=== PATIENT | male | born 2000 | race American Indian/Alaskan Native ===

== ENCOUNTER 2018-12-14 01:46 | Emergency (ER) | payer MEDICAID ==
[2018-12-14 02:22] VITALS: BP 123/62
--- NOTE | 2018-12-14 05:32 | Emergency Department Report ---
Chief Complaint: Wound/Laceration Stated Complaint: RIGHT MIDDLE FINGER PAIN Time Seen by Provider: 12/14/18 05:32 - HPI History of Present Illness: 18-year-old -Citizen Of [place] male who smells of cannabis comes in stating he was seen yesterday for right middle finger nail bed infection. Patient reports that they placed him on Motrin and Bactrim but patient reports he was afraid to take Motrin as prescribed as she did want to overdose. She comes in to ask what else he can take for pain. - ROS Review of Systems: Right middle finger pain - Exam Vital Signs: Vital Signs 12/14/18 12/14/18 01:54 02:12 Temperature 98.1 F 98 F Pulse Rate 68 76 Respiratory 18 18 Rate Blood Pressure 123/62 123/62 O2 Sat by Pulse 98 98 Oximetry Physical Exam: Right middle finger swelling with mild redness MSE screening note: Focused history and physical exam performed. Due to findings the following was ordered: Discuss with patient to take medication as prescribed. If the pain would improve with correct dosing of his medication. Patient verbalizes understanding. ED Disposition for MSE Clinical Impression: Infected nailbed of finger Qualifiers: Laterality: right Qualified Code(s): L03.011 - Cellulitis of right finger Disposition: DC-01 TO HOME OR SELFCARE Is pt being admited?: No Does the pt Need Aspirin: No Condition: Stable Additional Instructions: Complete her antibiotics as prescribed take her pain medication as prescribed. Follow-up with the primary care provider for symptoms persist or gets worse. Referrals: NAJMA PALENCIA MD [Primary Care Provider] - 3-5 Days
== END 2018-12-14 05:32 | disposition home or self-care (01) ==
LOC: ED 01:46
DX: L03.011 Cellulitis of right finger (principal)
CPT/HCPCS: 99281

== ENCOUNTER 2019-06-18 04:50 | Emergency (ER) | payer MEDICAID ==
[2019-06-18 05:13] VITALS: BP 122/56
[2019-06-18] MEDS ORDERED: AZITHROMYCIN 250 MG TAB PO ONE (05:29)
[2019-06-18] MEDS ORDERED: LIDOCAINE-MPF (1%) 10 MG/1 ML VIAL 5 ML INFILTRATI ONE (05:29)
[2019-06-18] MEDS ORDERED: ONDANSETRON 4 MG ODT TAB PO ONE (05:29)
[2019-06-18] MEDS ORDERED: PHENAZOPYRIDINE 200 MG TAB PO ONE (05:29)
--- NOTE | 2019-06-18 05:34 | Emergency Department Report ---
ED Male HPI - General Chief complaint: Urogenital-Male Stated complaint: WHITE SPOTS IN MOUTH, PENILE DISCHARGE, DIARRHEA Source: patient Mode of arrival: Ambulatory Limitations: No Limitations - History of Present Illness Initial comments: Patient is a 18-year-old -[place] male with no past medical history who presents to the ED with continued of acute onset persistent painful intraoral lesions in the last 2 weeks after having oral intercourse, also complains of penile discharge, urinary frequency and urgency and dysuria for the last 3 days after having unprotected sexual intercourse. Patient denies testicular pain, fever, chills, nausea, vomiting, low back pain, hematuria, abdominal pain or diarrhea and traumatic injury. MD Complaint: penile discharge, dysuria, other (Painful oral lesions) -: Sudden, days(s) (3) Location: penis Radiation: none Severity: severe Severity scale (0 -10): 7 Quality: aching, burning, sharp Consistency: constant Improves with: none Worsens with: urination denies other symptoms, discharge, rash, dysuria. denies: swelling, mass, urinary retention, blood in urine, fever, nausea/vomiting, incontinence, other - Related Data Sexually active: Yes Home Medications Medication Instructions Recorded Confirmed Last Taken Bactrim DS TAB 1 tab PO BID 12/14/18 12/14/18 Unknown Motrin 600 MG tab 1 tab PO BID 12/14/18 12/14/18 Unknown Previous Rx's Medication Instructions Recorded Last Taken Type Furosemide [Lasix] 20 mg PO DAILY #30 tablet 10/11/18 12/13/18 09:00 Rx Lisinopril [Zestril TAB] 2.5 mg PO QDAY #30 tab 10/11/18 12/13/18 Rx Acyclovir [Zovirax Tab] 400 mg PO Q8H #30 tab 06/18/19 Unknown Rx Ondansetron [Zofran Odt] 4 mg PO Q6HR PRN #15 tab.rapdis 06/18/19 Unknown Rx Phenazopyridine [Pyridium] 100 mg PO Q8H #21 tab 06/18/19 Unknown Rx Sulfamethoxazole/Trimethoprim 1 each PO Q12H #20 tablet 06/18/19 Unknown Rx [Bactrim DS TAB] metroNIDAZOLE [Flagyl] 500 mg PO Q12HR #14 tab 06/18/19 Unknown Rx Allergies Allergy/AdvReac Type Severity Reaction Status Date / Time No Known Allergies Allergy Unverified 10/09/18 22:53 ED Review of Systems ROS: Stated complaint: WHITE SPOTS IN MOUTH, PENILE DISCHARGE, DIARRHEA Other details as noted in HPI Constitutional: denies: chills, fever Eyes: denies: eye pain, eye discharge, vision change ENT: other (painful ulcerated oral lesions). denies: ear pain, throat pain Respiratory: denies: cough, shortness of breath, wheezing Cardiovascular: denies: chest pain, palpitations Endocrine: no symptoms reported Gastrointestinal: denies: abdominal pain, nausea, diarrhea Genitourinary: urgency, dysuria, frequency, discharge Musculoskeletal: denies: back pain, joint swelling, arthralgia Skin: denies: rash, lesions Neurological: denies: headache, weakness, paresthesias Psychiatric: denies: anxiety, depression Hematological/Lymphatic: denies: easy bleeding, easy bruising ED Past Medical Hx - Past Medical History Previous Medical History?: Yes Hx Hypertension: Yes Hx Congestive Heart Failure: No Hx Diabetes: No Hx Asthma: No Hx COPD: No Additional medical history: Congenital Heart Disease, Heart Murmur, - Surgical History Past Surgical History?: Yes Additional Surgical History: Repair of congenital heart disease - Social History Smoking Status: Never Smoker Substance Use Type: None - Medications Home Medications: Home Medications Medication Instructions Recorded Confirmed Last Taken Type Furosemide [Lasix] 20 mg PO DAILY #30 tablet 10/11/18 12/14/18 12/13/18 09:00 Rx Lisinopril [Zestril TAB] 2.5 mg PO QDAY #30 tab 10/11/18 12/14/18 12/13/18 Rx Bactrim DS TAB 1 tab PO BID 12/14/18 12/14/18 Unknown History Motrin 600 MG tab 1 tab PO BID 12/14/18 12/14/18 Unknown History Acyclovir [Zovirax Tab] 400 mg PO Q8H #30 tab 06/18/19 Unknown Rx Ondansetron [Zofran Odt] 4 mg PO Q6HR PRN #15 tab.rapdis 06/18/19 Unknown Rx Phenazopyridine [Pyridium] 100 mg PO Q8H #21 tab 06/18/19 Unknown Rx Sulfamethoxazole/Trimethoprim 1 each PO Q12H #20 tablet 06/18/19 Unknown Rx [Bactrim DS TAB] metroNIDAZOLE [Flagyl] 500 mg PO Q12HR #14 tab 06/18/19 Unknown Rx ED Physical Exam - General Limitations: No Limitations General appearance: alert, in no apparent distress - Head Head exam: Present: atraumatic, normocephalic, normal inspection - Eye Eye exam: Present: normal appearance, PERRL, EOMI Pupils: Present: normal accommodation - ENT ENT exam: Present: normal exam, normal orophraynx, mucous membranes moist, TM's normal bilaterally, normal external ear exam, other (erythematous ulcerated lesions with tenderness) - Neck Neck exam: Present: normal inspection, full ROM. Absent: tenderness, meningismus, lymphadenopathy, thyromegaly - Respiratory Respiratory exam: Present: normal lung sounds bilaterally. Absent: respiratory distress, wheezes, rales, rhonchi, chest wall tenderness, accessory muscle use, decreased breath sounds - Cardiovascular Cardiovascular Exam: Present: normal rhythm, bradycardia, normal heart sounds. Absent: systolic murmur, diastolic murmur, rubs, gallop - GI/Abdominal GI/Abdominal exam: Present: soft, normal bowel sounds. Absent: tenderness, guarding, rebound, hyperactive bowel sounds, hypoactive bowel sounds, organomegaly - Rectal Rectal exam: Present: deferred - exam: Present: urethral discharge, circumcision. Absent: testicular tenderness, scrotal swelling, vertical testicular lie External exam: Present: normal external exam. Absent: erythema, lesions - Extremities Exam Extremities exam: Present: normal inspection, full ROM, normal capillary refill - Back Exam Back exam: Present: normal inspection, full ROM. Absent: tenderness, CVA tenderness (R), CVA tenderness (L), muscle spasm, paraspinal tenderness, vertebral tenderness - Neurological Exam Neurological exam: Present: alert, oriented X3, CN II-XII intact, normal gait, reflexes normal - Psychiatric Psychiatric exam: Present: normal affect, normal mood - Skin Skin exam: Present: warm, dry, intact, normal color. Absent: rash ED Course Vital Signs 06/18/19 05:07 Temperature 98.1 F Pulse Rate 51 L Respiratory 20 Rate Blood Pressure 122/56 O2 Sat by Pulse 100 Oximetry - Reevaluation(s) Reevaluation #1: 06/18/19 05:35 This is a 18-year-old -[place] male with no past medical history who presented to the ED with painful ulcerated oral lesions with penile discharge and dysuria with urinary frequency and urgency. In the ED, patient is alert and oriented 3 and is not in distress. Urinalysis was ordered to include chlamydia and gonorrhea. Patient was treated empirically in the ED for gonorrhea and chlamydia and discharged home on acyclovir for suspected herpes simplex type I infection. Patient was advised to follow-up at the [facility] for further STD testing, and to inform his sexual partner or partners to go to the health Department for further STD testing and treatment. Patient was advised to return to the ED immediately if symptoms get worse. ED Medical Decision Making - Medical Decision Making This is a 18-year-old -[place] male with no past medical history who presented to the ED with painful ulcerated oral lesions with penile discharge and dysuria with urinary frequency and urgency. In the ED, patient is alert and oriented 3 and is not in distress. Urinalysis was ordered to include chlamydia and gonorrhea. Patient was treated empirically in the ED for gonorrhea and chlamydia and discharged home on acyclovir for suspected herpes simplex type I infection. Patient was advised to follow-up at the [facility] for further STD testing, and to inform his sexual partner or partners to go to the health Department for further STD testing and treatment. Patient was advised to return to the ED immediately if symptoms get worse. - Differential Diagnosis Acute UTI; Urethritis; Herpes simplex; STD Critical care attestation.: If time is entered above; I have spent that time in minutes in the direct care of this critically ill patient, excluding procedure time. ED Disposition Clinical Impression: STD (sexually transmitted disease), Urethritis, unspecified, Herpes gingivostomatitis, Acute urinary tract infection Disposition: DC-01 TO HOME OR SELFCARE Is pt being admited?: No Does the pt Need Aspirin: No Condition: Stable Instructions: Nonspecific Urethritis in Men (ED), Urinary Tract Infection in Children (ED), Dysuria (ED), Safe Sex (ED), Sexually Transmitted Diseases (ED), Oral Herpes Simplex Virus Infections (ED), Genital Herpes Simplex (ED) Additional Instructions: Take medications with food, drink plenty of fluids and follow-up with [facility] for further STD testing. Insomnia sexual partners also be tested and treated at the health Department as advised. Return to the ED immediately if symptoms get worse. Prescriptions: Sulfamethoxazole/Trimethoprim [Bactrim DS TAB] 1 each PO Q12H #20 tablet metroNIDAZOLE [Flagyl] 500 mg PO Q12HR #14 tab Phenazopyridine [Pyridium] 100 mg PO Q8H #21 tab Ondansetron [Zofran Odt] 4 mg PO Q6HR PRN #15 tab.rapdis PRN Reason: Nausea Acyclovir [Zovirax Tab] 400 mg PO Q8H #30 tab Referrals: [facility] [Outside] - 3-5 Days Forms: STI Treatment and Prevention Time of Disposition: 05:40 Print Language: KHMER
== END 2019-06-18 06:15 | disposition home or self-care (01) ==
LOC: ED 04:50
DX: N39.0 Urinary tract infection, site not specified (principal); B00.2 Herpesviral gingivostomatitis and pharyngotonsillitis; N34.2 Other urethritis; A64 Unspecified sexually transmitted disease; I10 Essential (primary) hypertension; Z79.899 Other long term (current) drug therapy
CPT/HCPCS: 96372; 99282; J0696; Q0162

== ENCOUNTER 2019-07-27 16:04 | Emergency (ER) | payer MEDICAID ==
--- NOTE | 2019-07-27 16:32 | Emergency Department Report ---
Blank Doc - Documentation Documentation: 18-year-old male that presents with right testicular pain. Denies any other s ymptoms. This initial assessment/diagnostic orders/clinical plan/treatment(s) is/are subject to change based on patient's health status, clinical progression and re- assessment by fellow clinical providers in the ED. Further treatment and workup at subsequent clinical providers discretion. Patient/guardians urged not to elope from the ED as their condition may be serious if not clinically assessed and managed. Initial orders include: 1- Patient sent to [facility] for further evaluation and treatment 2- UA 3- US testicular doppler stat. Called US tech.
--- NOTE | 2019-07-27 17:53 | Ultrasound Report ---
[facility] ULTRASOUND INDICATION / CLINICAL INFORMATION: Right testicular pain for one day.. COMPARISON: None available. FINDINGS: Both testicles are normal in size and echo pattern. There is a single microlith in the left mid testi chata which is of doubtful clinical significance. There is no evidence of a testicular mass. There is n ormal blood flow to both testicles on Doppler exam. There are minimal bilateral hydroceles. The epidi dymis is normal in appearance bilaterally. I see no evidence of a varicocele. IMPRESSION: No evidence of testicular mass or torsion. Signer Name: Torrey Pulido MD Signed: 07/27/2019 5:48 PM Workstation Name: [id number]
[2019-07-27] MEDS ORDERED: ONDANSETRON 4 MG ODT TAB PO ONE (20:03)
[2019-07-27] MEDS ORDERED: AZITHROMYCIN 250 MG TAB PO ONE (20:03)
[2019-07-27] MEDS ORDERED: LIDOCAINE-MPF (1%) 10 MG/1 ML VIAL 5 ML INFILTRATI ONE (20:03)
[2019-07-27 20:54] LABS: Bacteria,Urine 1+ /HPF (Negative); Bilirubin,Urine NEG (Negative); Blood,Urine NEG (Negative); Color,Urine Yellow (Yellow); Mucus,Urine 3+ /HPF
--- NOTE | 2019-07-27 21:26 | Emergency Department Report ---
ED Male HPI - General Chief complaint: Urogenital-Male Stated complaint: GROIN/PAIN Time Seen by Provider: 07/27/19 16:31 Source: patient Mode of arrival: Ambulatory Limitations: No Limitations - History of Present Illness Initial comments: Patient is a 18-year-old -[place] male with no past medical history who presents to the ED, with complaint of acute onset persistent nontraumatic right testicular pain for 6 hours. Patient denies traumatic injury, fall, heavy lifting, hematuria, penile discharge, urinary frequency and urgency, dysuria, back pain, flank pain, fever, chills, nausea and vomiting or pain. MD Complaint: testicle pain (his) -: Sudden, hour(s) (6) Location: right testicle Radiation: none Severity: severe Severity scale (0 -10): 7 Quality: aching, sharp Consistency: constant Improves with: none Worsens with: palpation, movement denies other symptoms. denies: discharge, swelling, mass, rash, urinary retention, blood in urine, dysuria, fever, nausea/vomiting, incontinence - Related Data Sexually active: Yes Home Medications Medication Instructions Recorded Confirmed Last Taken Bactrim DS TAB 1 tab PO BID 12/14/18 12/14/18 Unknown Motrin 600 MG tab 1 tab PO BID 12/14/18 12/14/18 Unknown Previous Rx's Medication Instructions Recorded Last Taken Type Furosemide [Lasix] 20 mg PO DAILY #30 tablet 10/11/18 12/13/18 09:00 Rx Lisinopril [Zestril TAB] 2.5 mg PO QDAY #30 tab 10/11/18 12/13/18 Rx Acyclovir [Zovirax Tab] 400 mg PO Q8H #30 tab 06/18/19 Unknown Rx Ondansetron [Zofran Odt] 4 mg PO Q6HR PRN #15 tab.rapdis 06/18/19 Unknown Rx Phenazopyridine [Pyridium] 100 mg PO Q8H #21 tab 06/18/19 Unknown Rx Sulfamethoxazole/Trimethoprim 1 each PO Q12H #20 tablet 06/18/19 Unknown Rx [Bactrim DS TAB] metroNIDAZOLE [Flagyl] 500 mg PO Q12HR #14 tab 06/18/19 Unknown Rx Acetaminophen/Codeine [Tylenol 1 tab PO Q6H PRN #10 tab 07/27/19 Unknown Rx /Codeine # 3 tab] Ciprofloxacin HCl [Ciprofloxacin 500 mg PO Q12HR #20 tab 07/27/19 Unknown Rx TAB] Naproxen 500 mg PO Q12H PRN #24 tablet 07/27/19 Unknown Rx Allergies Allergy/AdvReac Type Severity Reaction Status Date / Time No Known Allergies Allergy Unverified 10/09/18 22:53 ED Review of Systems ROS: Stated complaint: GROIN/PAIN Other details as noted in HPI Comment: All other systems reviewed and negative Constitutional: denies: chills, fever Eyes: denies: eye pain, eye discharge, vision change ENT: denies: ear pain, throat pain Respiratory: denies: cough, orthopnea, shortness of breath, SOB with exertion, stridor, wheezing Cardiovascular: denies: chest pain, palpitations Endocrine: no symptoms reported Gastrointestinal: denies: abdominal pain, nausea, diarrhea Genitourinary: testicular pain (right testicular pain). denies: urgency, dysuria, frequency, hematuria, discharge Musculoskeletal: denies: back pain, joint swelling, arthralgia, myalgia Skin: denies: rash, lesions, change in color Neurological: denies: headache, weakness, paresthesias Psychiatric: denies: anxiety, depression Hematological/Lymphatic: denies: easy bleeding, easy bruising ED Past Medical Hx - Past Medical History Previous Medical History?: Yes Hx Hypertension: Yes Hx Congestive Heart Failure: No Hx Diabetes: No Hx Asthma: No Hx COPD: No Additional medical history: Congenital Heart Disease, Heart Murmur, - Surgical History Past Surgical History?: Yes Additional Surgical History: Repair of congenital heart disease - Social History Smoking Status: Current Every Day Smoker Substance Use Type: Marijuana - Medications Home Medications: Home Medications Medication Instructions Recorded Confirmed Last Taken Type Furosemide [Lasix] 20 mg PO DAILY #30 tablet 10/11/18 12/14/18 12/13/18 09:00 Rx Lisinopril [Zestril TAB] 2.5 mg PO QDAY #30 tab 10/11/18 12/14/18 12/13/18 Rx Bactrim DS TAB 1 tab PO BID 12/14/18 12/14/18 Unknown History Motrin 600 MG tab 1 tab PO BID 12/14/18 12/14/18 Unknown History Acyclovir [Zovirax Tab] 400 mg PO Q8H #30 tab 10/03/19 Unknown Rx Ondansetron [Zofran Odt] 4 mg PO Q6HR PRN #15 tab.rapdis 06/18/19 Unknown Rx Phenazopyridine [Pyridium] 100 mg PO Q8H #21 tab 06/18/19 Unknown Rx Sulfamethoxazole/Trimethoprim 1 each PO Q12H #20 tablet 06/18/19 Unknown Rx [Bactrim DS TAB] metroNIDAZOLE [Flagyl] 500 mg PO Q12HR #14 tab 06/18/19 Unknown Rx Acetaminophen/Codeine [Tylenol 1 tab PO Q6H PRN #10 tab 07/27/19 Unknown Rx /Codeine # 3 tab] Ciprofloxacin HCl [Ciprofloxacin 500 mg PO Q12HR #20 tab 07/27/19 Unknown Rx TAB] Naproxen 500 mg PO Q12H PRN #24 tablet 07/27/19 Unknown Rx ED Physical Exam - General Limitations: No Limitations General appearance: alert, in no apparent distress - Head Head exam: Present: atraumatic, normocephalic, normal inspection - Eye Eye exam: Present: normal appearance, PERRL, EOMI Pupils: Present: normal accommodation - ENT ENT exam: Present: normal exam, normal orophraynx, mucous membranes moist, TM's normal bilaterally, normal external ear exam - Neck Neck exam: Present: normal inspection, full ROM - Respiratory Respiratory exam: Present: normal lung sounds bilaterally. Absent: respiratory distress, wheezes, rales, rhonchi, stridor, chest wall tenderness, accessory muscle use, decreased breath sounds - Cardiovascular Cardiovascular Exam: Present: regular rate, normal rhythm, normal heart sounds. Absent: systolic murmur, diastolic murmur, rubs, gallop - GI/Abdominal GI/Abdominal exam: Present: soft, normal bowel sounds. Absent: tenderness, guarding, rebound, hyperactive bowel sounds, hypoactive bowel sounds - exam: Present: testicular tenderness (right ), circumcision. Absent: urethral discharge, scrotal swelling, vertical testicular lie External exam: Present: normal external exam. Absent: erythema, swelling, lesions, lacerations, ecchymosis, bleeding - Extremities Exam Extremities exam: Present: normal inspection, full ROM, normal capillary refill - Back Exam Back exam: Present: normal inspection, full ROM. Absent: tenderness, muscle spasm - Neurological Exam Neurological exam: Present: alert, oriented X3, CN II-XII intact, normal gait, reflexes normal - Psychiatric Psychiatric exam: Present: normal affect, normal mood - Skin Skin exam: Present: warm, dry, intact, normal color. Absent: rash ED Course Vital Signs 07/27/19 16:31 Temperature 97.8 F Pulse Rate 65 Respiratory 20 Rate Blood Pressure 116/42 O2 Sat by Pulse 100 Oximetry ED Medical Decision Making - Radiology Data Radiology results: report reviewed, image reviewed Findings [address] [address] Ultrasound Report Signed Patient: JOY MARTINEZ MR#: [id number] : 2000 Acct:[id number] Age/Sex: 18 / M ADM Date: 07/27/19 Loc: ED Attending Dr: Ordering Physician: CHAITANYA CANADA NP Date of Service: 07/27/19 Procedure(s): US testicular doppler comp Accession Number(s): [id number] cc: CHAITANYA CANADA NP [facility] ULTRASOUND INDICATION / CLINICAL INFORMATION: Right testicular pain for one day.. COMPARISON: None available. FINDINGS: Both testicles are normal in size and echo pattern. There is a single microlith in the left mid testicle which is of doubtful clinical significance. There is no evidence of a testicular mass. There is normal blood flow to both testicles on Doppler exam. There are minimal bilateral hydroceles. The epididymis is normal in appearance bilaterally. I see no evidence of a varicocele. IMPRESSION: No evidence of testicular mass or torsion. Signer Name: Torrey Pulido MD Signed: 07/27/2019 5:48 PM Workstation Name: [id number] Transcribed By: RT Dictated By: Torrey Pulido MD Electronically Authenticated By: Torrey Pulido MD Signed Date/Time: 07/27/191747 DD/ 45 TD/TT: - Medical Decision Making This is a 18-year-old male who presented to the ED with acute onset nontraumatic right testicular pain. In the ED, patient is alert and oriented 3 and is not in any distress but appears to be in pain. Urinalysis is unremarkable. Testicular ultrasound shows no acute abnormality including testicular torsion, hydrocele or evidence of epididymitis. Patient was treated for pain in the ED. Patient was also empirically treated for gonorrhea and chlamydia and discharged home on medications for pain and empirically with ciprofloxacin. Patient is advised to follow-up with his primary care physician in 7-10 days for reevaluation or return to the ED immediately if symptoms get worse. - Differential Diagnosis Testicular torsion; Epididymitis; UTI; STD; Kidney stones Critical care attestation.: If time is entered above; I have spent that time in minutes in the direct care of this critically ill patient, excluding procedure time. ED Disposition Clinical Impression: Right testicular pain Disposition: DC-01 TO HOME OR SELFCARE Is pt being admited?: No Does the pt Need Aspirin: No Condition: Stable Instructions: Testicle Pain (ED) Additional Instructions: Take pain medications and empirical antibiotics as advised with food, drink plenty fluids and follow up with your primary care physician 5-7 days for reevaluation. Return to the ED immediately if symptoms get worse. Prescriptions: Ciprofloxacin HCl [Ciprofloxacin TAB] 500 mg PO Q12HR #20 tab Naproxen 500 mg PO Q12H PRN #24 tablet PRN Reason: Pain , Severe (7-10) Acetaminophen/Codeine [Tylenol /Codeine # 3 tab] 1 tab PO Q6H PRN #10 tab PRN Reason: Pain , Severe (7-10) Referrals: [facility] [Outside] - 3-5 Days Forms: Work/School Release Form(ED) Time of Disposition: 21:28 Print Language: SPANISH
[2019-07-27 21:59] VITALS: BP 120/70
== END 2019-07-27 21:58 | disposition home or self-care (01) ==
LOC: ED 16:04
DX: N50.811 Right testicular pain (principal); I10 Essential (primary) hypertension; F17.200 Nicotine dependence, unspecified, uncomplicated; F12.10 Cannabis abuse, uncomplicated; Z79.899 Other long term (current) drug therapy
CPT/HCPCS: 81001; 93975; 96372; 99284; J0696; Q0162

== ENCOUNTER 2020-06-26 16:37 | Emergency (ER) | payer MEDICAID ==
--- NOTE | 2020-06-26 16:46 | Emergency Department Report ---
Blank Doc - Documentation Documentation: 19-year-old male that presents with cp. HX of cardiac. This initial assessment/diagnostic orders/clinical plan/treatment(s) is/are subject to change based on patient's health status, clinical progression and re- assessment by fellow clinical providers in the ED. Further treatment and workup at subsequent clinical providers discretion. Patient/guardians urged not to elope from the ED as their condition may be serious if not clinically assessed and managed. Initial orders include: 1- Patient sent to MAIN ED for further evaluation and treatment 2- cardiac workup
[2020-06-26 17:26] LABS: Basophils % (Auto) 0.5 % (0.0-1.8); Eosinophils % (Auto) 0.1 % (0.0-4.3); Hematocrit 41.4 % (35.5-45.6); Hemoglobin 13.5 gm/dl (11.8-15.2); Lymphocytes # (Auto) 0.7 K/mm3 (1.2-5.4); Lymphocytes % (Auto) 12.5 % (13.4-35.0); Mean Corpuscular HGB Conc 33 % (32-34); Mean Corpuscular Volume 91 fl (84-94); Monocytes # (Auto) 0.3 K/mm3 (0.0-0.8); Monocytes % (Auto) 5.1 % (0.0-7.3); Platelet Count 143 K/mm3 (140-440); Red Blood Count 4.55 M/mm3 (3.65-5.03); Red Cell Distribution Width 13.8 % (13.2-15.2)
[2020-06-26 17:37] LABS: INR 0.98 (0.87-1.13)
[2020-06-26 17:38] LABS: Partial Thromboplastin Time 25.8 Sec. (24.2-36.6)
[2020-06-26 17:42] LABS: Alanine Aminotransferase 13 units/L (7-56); Albumin 4.4 g/dL (3.9-5); BUN/Creatinine Ratio 11; Blood Urea Nitrogen 9 mg/dL (9-20); Calcium 9.5 mg/dL (8.4-10.2); Hemolysis Index 7
--- NOTE | 2020-06-26 17:50 | Emergency Department Report ---
HPI - General Chief Complaint: Chest Pain Time Seen by Provider: 06/26/20 16:45 - HPI HPI: Room 41 The patient is a 19-year-old male present with a chief complaint of chest pain. The patient states this afternoon at approximately 15: 00 while in the shower he developed chest tightness which lasted approximate 2 to 3 minutes. Patient states he was difficulty breathing he developed an episode of nausea and vomiting. Patient denied diaphoresis. Patient denies cough, fever or contact with known COVID patients. When asked how he is feeling currently the patient states he feels okay. ED Past Medical Hx - Past Medical History Previous Medical History?: Yes Hx Hypertension: Yes Additional medical history: Congenital Heart Disease, Heart Murmur, - Surgical History Past Surgical History?: Yes Additional Surgical History: Repair of ASD/VSD - Family History Family history: no significant - Social History Smoking Status: Never Smoker Substance Use Type: None (Denies illicit drug use), Alcohol (Occasional) - Medications Home Medications: Home Medications Medication Instructions Recorded Confirmed Last Taken Type Furosemide [Lasix] 20 mg PO DAILY #30 tablet 10/11/18 12/14/18 12/13/18 09:00 Rx Lisinopril [Zestril TAB] 2.5 mg PO QDAY #30 tab 10/11/18 12/14/18 12/13/18 Rx Acetaminophen/Codeine [Tylenol 1 tab PO Q6H PRN #10 tab 12/21/19 Unknown Rx /Codeine # 3 tab] Fexofenadine HCl [Lili Allergy] 180 mg PO DAILY #30 tablet 12/21/19 Unknown Rx ED Review of Systems ROS: Stated complaint: CHEST PAIN Other details as noted in HPI Constitutional: denies: diaphoresis, fever Respiratory: shortness of breath. denies: cough Cardiovascular: chest pain Endocrine: no symptoms reported Gastrointestinal: nausea, vomiting Physical Exam - Physical Exam Physical Exam: GENERAL: The patient is well-developed well-nourished male sleeping on stretcher not appearing to be in acute distress. [] HEENT: Normocephalic. Atraumatic. Extraocular motions are intact. Patient has moist mucous membranes. NECK: Supple. Trachea midline CHEST/LUNGS: Clear to auscultation. There is no respiratory distress noted. HEART/CARDIOVASCULAR: Regular. There is no tachycardia. There is no gallop rub or murmur. ABDOMEN: Abdomen is soft, nontender. Patient has normal bowel sounds. There is no abdominal distention. SKIN: There is no rash. There is no edema. There is no diaphoresis. NEURO: The patient is awake, alert, and oriented. The patient is cooperative. The patient has normal speech MUSCULOSKELETAL: There is no evidence of acute injury. ED Medical Decision Making - Lab Data Result diagrams: 06/26/20 17:00 06/26/20 17:00 Laboratory Tests 06/26/20 06/26/20 06/26/20 17:00 17:00 17:00 WBC 6.0 RBC 4.55 Hgb 13.5 Hct 41.4 MCV 91 MCH 30 MCHC 33 RDW 13.8 Plt Count 143 Lymph % (Auto) 12.5 L [place] % (Auto) 5.1 Eos % (Auto) 0.1 Baso % (Auto) 0.5 Lymph # (Auto) 0.7 L [place] # (Auto) 0.3 Eos # (Auto) 0.0 Baso # (Auto) 0.0 Seg Neutrophils % 81.8 H Seg Neutrophils # 4.9 PT 13.1 INR 0.98 APTT 25.8 D-Dimer Sodium 138 Potassium 3.8 Chloride 99.8 Carbon Dioxide 27 Anion Gap 15 BUN 9 Creatinine 0.8 Estimated GFR > 60 BUN/Creatinine Ratio 11 Glucose 88 Calcium 9.5 Total Bilirubin 0.40 AST 18 ALT 13 Alkaline Phosphatase 80 Troponin T < 0.010 Total Protein 7.0 Albumin 4.4 Albumin/Globulin Ratio 1.7 06/26/20 17:00 WBC RBC Hgb Hct MCV MCH MCHC RDW Plt Count Lymph % (Auto) Coryell % (Auto) Eos % (Auto) Baso % (Auto) Lymph # (Auto) Coryell # (Auto) Eos # (Auto) Baso # (Auto) Seg Neutrophils % Seg Neutrophils # PT INR APTT D-Dimer 199.25 Sodium Potassium Chloride Carbon Dioxide Anion Gap BUN Creatinine Estimated GFR BUN/Creatinine Ratio Glucose Calcium Total Bilirubin AST ALT Alkaline Phosphatase Troponin T Total Protein Albumin Albumin/Globulin Ratio - EKG Data -: EKG Interpreted by In EKG shows normal: sinus rhythm Rate: normal - EKG Data When compared to previous EKG there are: no significant change Interpretation: unchanged when compared t (04/01/2020) - Radiology Data Radiology results: report reviewed (Chest x-ray), image reviewed (Chest x-ray) interpreted by me: Chest x-ray-no focal infiltrates, no pneumothorax. No foreign body seen [facility] [address] [place] [address] XRay Report Signed Patient: JOY MARTINEZ MR#: [id number] : 2000 Acct:[id number] Age/Sex: 19 / M ADM Date: 06/26/20 Loc: ED Attending Dr: Ordering Physician: CHAITANYA CANADA NP Date of Service: 06/26/20 Procedure(s): XR chest routine 2V Accession Number(s): [id number] cc: CHAITANYA CANADA NP Fluoro Time In Minutes: CHEST 2 VIEWS INDICATION / CLINICAL INFORMATION: Chest Pain. FINDINGS: SUPPORT DEVICES: None. HEART / MEDIASTINUM: No significant abnormality. LUNGS / PLEURA: No significant pulmonary or pleural abnormality. No pneumothorax. ADDITIONAL FINDINGS: No significant additional findings. IMPRESSION: 1. No acute findings. Signer Name: Moises Lim MD Signed: 06/26/2020 5:47 PM Workstation Name: [id number] Transcribed By: Dictated By: Moises Lim MD Electronically Authenticated By: Moises Lim MD Signed Date/Time: 06/26/201746 DD/ 46 TD/TT: - Differential Diagnosis Atypical chest pain, pneumonia, costochondritis, PE, ACS Critical care attestation.: If time is entered above; I have spent that time in minutes in the direct care of this critically ill patient, excluding procedure time. ED Disposition Clinical Impression: Atypical chest pain Disposition: TO HOME OR SELFCARE Is pt being admited?: No Does the pt Need Aspirin: No Condition: Stable Instructions: Chest Pain (ED) Additional Instructions: Return to the emergency department should you develop worsening symptoms, inability to tolerate food or liquids, high fever or any other concerns Referrals: [facility] [Provider Group] - 3-5 Days Time of Disposition: 18:01
== END 2020-06-26 18:38 | disposition home or self-care (01) ==
LOC: ED 16:37
DX: R07.89 Other chest pain (principal); R11.2 Nausea with vomiting, unspecified; I10 Essential (primary) hypertension; Z98.890 Other specified postprocedural states; Z79.899 Other long term (current) drug therapy
CPT/HCPCS: 36415; 71046; 80053; 84484; 85025; 85379; 85610; 85730; 93005

== ENCOUNTER 2022-02-18 15:56 | Emergency (ER) | payer MEDICARE ==
[2022-02-18] MEDS ORDERED: SODIUM CHLORIDE 0.9% 1000 ML 1,000 ML IV ONE (17:43)
[2022-02-18] MEDS ORDERED: MORPHINE 4 MG/1 ML INJ IV ONE (17:43)
[2022-02-18] MEDS ORDERED: ONDANSETRON 4 MG/2 ML INJ IV ONE (17:43)
--- NOTE | 2022-02-18 17:48 | Emergency Department Report ---
ED Abdominal Pain HPI - General Chief Complaint: Nausea/Vomiting/Diarrhea Stated Complaint: VOMITING/SEIZURE Time Seen by Provider: 02/18/22 17:38 Source: patient, EMS Mode of arrival: Stretcher Limitations: No Limitations - History of Present Illness Initial Comments: Patient is 21 years old male with history of ADHD and depression. Patient brought to the emergency room for evaluation of diffuse abdominal pain, crampy in nature with no radiation. Patient is also complaining of diarrhea stated that he is unable to stop the diarrhea that is why he is wearing a diaper. He stated that his unclaimed property manager asked him to come to the ER for evaluation. Patient stated that he had seizure yesterday and he never had any history of seizure before. Patient denies any nausea or vomiting. No fever or chills. MD Complaint: abdominal pain -: Last night Location: diffuse Radiation: none Migration to: no migration Quality: cramping - Related Data Previous Rx's Medication Instructions Recorded Last Taken Type Furosemide [Lasix] 20 mg PO DAILY #30 tablet 10/11/18 12/13/18 09:00 Rx Lisinopril [Zestril TAB] 2.5 mg PO QDAY #30 tab 10/11/18 12/13/18 Rx Acetaminophen/Codeine [Tylenol 1 tab PO Q6H PRN #10 tab 12/21/19 Unknown Rx /Codeine # 3 tab] Fexofenadine HCl [Lili Allergy] 180 mg PO DAILY #30 tablet 12/21/19 Unknown Rx Allergies Allergy/AdvReac Type Severity Reaction Status Date / Time No Known Allergies Allergy Verified 02/18/22 16:04 ED Review of Systems ROS: Stated complaint: VOMITING/SEIZURE Other details as noted in HPI Comment: All other systems reviewed and negative Constitutional: denies: chills, fever Respiratory: denies: cough, shortness of breath, SOB with exertion Cardiovascular: denies: chest pain, palpitations Gastrointestinal: abdominal pain, diarrhea. denies: nausea, vomiting, constipation, hematemesis Musculoskeletal: denies: back pain Neurological: denies: headache, weakness Psychiatric: denies: anxiety, depression, auditory hallucinations, visual hallucinations, homicidal thoughts, suicidal thoughts ED Past Medical Hx - Past Medical History Hx Hypertension: Yes Hx Congestive Heart Failure: No Hx Diabetes: No Hx Asthma: No Hx COPD: No Additional medical history: Congenital Heart Disease, Heart Murmur, - Surgical History Additional Surgical History: Repair of ASD/VSD - Social History Smoking Status: Never Smoker Substance Use Type: None (Denies illicit drug use), Alcohol (Occasional) - Medications Home Medications: Home Medications Medication Instructions Recorded Confirmed Last Taken Type Furosemide [Lasix] 20 mg PO DAILY #30 tablet 10/11/18 12/14/18 12/13/18 09:00 Rx Lisinopril [Zestril TAB] 2.5 mg PO QDAY #30 tab 10/11/18 12/14/18 12/13/18 Rx Acetaminophen/Codeine [Tylenol 1 tab PO Q6H PRN #10 tab 12/21/19 Unknown Rx /Codeine # 3 tab] Fexofenadine HCl [Lili Allergy] 180 mg PO DAILY #30 tablet 12/21/19 Unknown Rx ED Physical Exam - General Limitations: No Limitations General appearance: alert, in no apparent distress - Head Head exam: Present: atraumatic, normocephalic, normal inspection - Eye Eye exam: Present: normal appearance - ENT ENT exam: Present: normal exam, normal orophraynx, mucous membranes moist - Neck Neck exam: Present: normal inspection, full ROM. Absent: tenderness, meningismu s - Respiratory Respiratory exam: Present: normal lung sounds bilaterally - Cardiovascular Cardiovascular Exam: Present: regular rate, normal rhythm, normal heart sounds - GI/Abdominal GI/Abdominal exam: Present: soft, normal bowel sounds. Absent: distended, tenderness, guarding, rebound, rigid, organomegaly, mass, bruit, pulsatile mass, hernia - Extremities Exam Extremities exam: Present: normal inspection, full ROM, normal capillary refill. Absent: tenderness - Back Exam Back exam: Present: normal inspection, full ROM. Absent: CVA tenderness (R), CVA tenderness (L) - Neurological Exam Neurological exam: Present: alert, oriented X3, CN II-XII intact, normal gait, reflexes normal. Absent: motor sensory deficit - Psychiatric Psychiatric exam: Present: normal mood, anxious. Absent: homicidal ideation, suicidal ideation - Skin Skin exam: Present: warm, intact, normal color ED Course Vital Signs 02/18/22 02/18/22 02/18/22 16:01 18:12 18:15 Temperature 98.4 F Pulse Rate 88 75 Blood Pressure 119/47 107/63 [Left] O2 Sat by Pulse 98 99 99 Oximetry ED Medical Decision Making - Lab Data Result diagrams: 02/18/22 18:26 02/18/22 18:26 - Radiology Data Radiology results: report reviewed - Medical Decision Making Patient is 21 years old male with history of ADHD and depression. Patient brought to the emergency room for evaluation of diffuse abdominal pain, crampy in nature with no radiation. Patient is also complaining of diarrhea stated that he is unable to stop the diarrhea that is why he is wearing a diaper. He stated that his unclaimed property manager asked him to come to the ER for evaluation. Patient stated that he had seizure yesterday and he never had any history of seizure before. Patient denies any nausea or vomiting. No fever or chills. Patient received morphine and Zofran. Labs reviewed and is unremarkable. CT abdomen pelvis showed infectious versus inflammatory colitis. I will start patient on ciprofloxacin and Flagyl and advised patient to follow-up with his primary care physician in the next 2 to 3 days and to return to the ER if he develop any new symptoms. Critical care attestation.: If time is entered above; I have spent that time in minutes in the direct care of this critically ill patient, excluding procedure time. ED Disposition Clinical Impression: Acute colitis, Acute abdominal pain, Diarrhea Disposition: 01 HOME / SELF CARE / HOMELESS Is pt being admited?: No Condition: Stable Instructions: Abdominal Pain, Adult, [id number], Diarrhea, Adult, [id number], Colitis Referrals: URIAH KNAPP MD [Primary Care Provider] - 3-5 Days
[2022-02-18 19:06] LABS: Basophils % (Auto) 0.3 % (0.0-1.8); Hematocrit 39.7 % (35.5-45.6); Hemoglobin 13.3 gm/dl (11.8-15.2); Lymphocytes # (Auto) 0.4 K/mm3 (1.2-5.4); Lymphocytes % (Auto) 7.9 % (13.4-35.0); Mean Corpuscular HGB Conc 34 % (32-34); Mean Corpuscular Volume 90 fl (84-94); Monocytes # (Auto) 0.4 K/mm3 (0.0-0.8); Monocytes % (Auto) 6.9 % (0.0-7.3); Platelet Count 115 K/mm3 (140-440); Red Blood Count 4.42 M/mm3 (3.65-5.03); Red Cell Distribution Width 13.4 % (13.2-15.2)
[2022-02-18 20:01] LABS: Alanine Aminotransferase 14 units/L (7-56); BUN/Creatinine Ratio 13; Blood Urea Nitrogen 12 mg/dL (9-20); Hemolysis Index 8
[2022-02-18 20:07] LABS: Bilirubin,Direct < 0.2 mg/dL (0-0.2)
--- NOTE | 2022-02-18 20:53 | Cat Scan Report ---
CT ABDOMEN AND PELVIS WITH CONTRAST INDICATION / CLINICAL INFORMATION: abdominal pain. TECHNIQUE: Axial CT images were obtained through the abdomen and pelvis after 100 cc of Omnipaque [address] scans at this location are performed using CT dose reduction for ALARA by means of automated exposure control. COMPARISON: None available. FINDINGS: LOWER CHEST: No significant abnormality. AORTA / ARTERIES: No significant abnormality. IVC / VEINS: No significant abnormality. LYMPH NODES: Lack of intraperitoneal fat limits evaluation. COLON: Multiple fluid-filled loops of colon throughout the abdomen with colonic wall thickening seen involving the descending colon. APPENDIX: No significant abnormality. STOMACH / SMALL BOWEL: No significant abnormality. PERITONEUM: No free fluid. No free air. No fluid collection. LIVER: No significant abnormality. GALLBLADDER: No significant abnormality. BILE DUCTS: No significant abnormality. PANCREAS: No significant abnormality. SPLEEN: No significant abnormality. ADRENALS: No significant abnormality. RIGHT KIDNEY / URETER: No significant abnormality. LEFT KIDNEY / URETER: No significant abnormality. URINARY BLADDER: No significant abnormality. REPRODUCTIVE ORGANS: No significant abnormality. SKELETAL SYSTEM: No significant abnormality. ADDITIONAL FINDINGS: None. IMPRESSION: 1. Findings suggesting infectious versus inflammatory colitis. Signer Name: Junaid Cochran DO Signed: 02/18/2022 8:48 PM Workstation Name: [id number]
[2022-02-18 21:07] VITALS: BP 120/78
== END 2022-02-18 21:13 | disposition home or self-care (01) ==
LOC: ED 15:56
DX: K52.9 Noninfective gastroenteritis and colitis, unspecified (principal); R10.84 Generalized abdominal pain; R11.10 Vomiting, unspecified; I11.9 Hypertensive heart disease without heart failure; R01.1 Cardiac murmur, unspecified; Z98.890 Other specified postprocedural states
CPT/HCPCS: 36415; 74177; 80048; 80076; 83690; 85025; 96361; 96374; 96375; 99284; J2270; J2405; J7030; Q9967